=== PATIENT | female | born 1940 | race Caucasian/White ===

== ENCOUNTER 2016-12-28 20:36 | Emergency (ER) | payer MEDICARE, OTHER ==
--- NOTE | 2016-12-28 21:19 | ED Physician Chart ---
Chief Complaint/HPI - Patient Information Date Seen:: 12/28/16 Time Seen:: 21:12 Chief Complaint:: ftt History of Present Illness:: pt sent from [place] for failure to thrive...poor feeding for last week. Dr Alcantar is pmd. pt denies her eating habit is that bad lately. she is alert and oriented and says she feels ok w no abdominal pains. no n/v/d. no fever. no recent illness. pt has 3 dtrs and asked if any could come in or be contacted... pt refuses saying its too late (9pm) Allergies:: Allergies Allergy/AdvReac Type Severity Reaction Status Date / Time MDX No Known Allergies - Nka Allergy Verified 03/01/16 18:59 [No Known Allergies - Nka] Review of Systems - Review of Systems General/Constitutional: Fever, No chills, No weight loss, No weakness, No diaphoresis, No edema, No loss of appetite Skin: No skin lesions, No rash, No bruising Head: No headache, No light-headedness Eyes: No loss of vision, No pain, No diplopia ENT: No earache, No nasal drainage, No sore throat, No tinnitus Neck: No neck pain, No swelling, No thyromegaly, No stiffness, No mass noted Cardio Vascular: No chest pain, No palpitations, No PND, No orthopnea, No edema Pulmonary: No SOB, No cough, No sputum, No wheezing GI: No nausea, No vomiting, No diarrhea, No pain, No melena, No hematochezia, No constipation, No hematemesis G/U: No dysuria, No frequency, No hematuria Musculoskeletal: No bone or joint pain, No back pain, No muscle pain Endocrine: No polyuria, No polydipsia Psychiatric: No prior psych history, No depression, No anxiety, No suicidal ideation Hematopoietic: No bruising, No lymphadenopathy Allergic/Immuno: No urticaria, No angioedema Neurological: No syncope, No focal symptoms, No weakness, No paresthesia, No headache, No seizure, No dizziness, No confusion, No vertigo Family Medical History - Family Member Mother History Unknown: Yes Labs/Radiology/EKG Results - Lab Results Results: Laboratory Tests 12/28/16 12/28/16 12/28/16 21:29 21:29 21:29 WBC 12.0 H D RBC 3.85 Hgb 11.5 L Hct 33.9 L MCV 88.2 MCH 30.0 MCHC Differential 34.0 RDW 13.7 Plt Count 206 MPV 7.7 Neutrophils % 71.7 Lymphocytes % 17.4 L Monocytes % 6.8 Eosinophils % 4.0 Basophils % 0.1 Sodium 137 Potassium 4.1 Chloride 99 Carbon Dioxide 32.9 H Anion Gap 9.2 BUN 32 H Creatinine 0.9 Est GFR ( Amer) TNP Est GFR (Non-Af Amer) TNP BUN/Creatinine Ratio 35.6 Glucose 93 Calcium 9.2 Total Bilirubin 0.4 AST 17 ALT 7 Alkaline Phosphatase 38 Troponin I < 0.01 L Total Protein 6.5 Albumin 3.7 Globulin 2.8 Albumin/Globulin Ratio 1.3 Lipase 68 Urine Source Urine Color Urine Clarity Urine pH Ur Specific [place] Urine Protein Urine Glucose (UA) Urine Ketones Urine Blood Urine Nitrate Urine Bilirubin Urine Urobilinogen Ur Leukocyte Esterase Urine RBC Urine WBC Ur Epithelial Cells Urine Bacteria 12/28/16 21:35 WBC RBC Hgb Hct MCV MCH MCHC Differential RDW Plt Count MPV Neutrophils % Lymphocytes % Monocytes % Eosinophils % Basophils % Sodium Potassium Chloride Carbon Dioxide Anion Gap BUN Creatinine Est GFR ( Amer) Est GFR (Non-Af Amer) BUN/Creatinine Ratio Glucose Calcium Total Bilirubin AST ALT Alkaline Phosphatase Troponin I Total Protein Albumin Globulin Albumin/Globulin Ratio Lipase Urine Source CLEAN C Urine Color YELLOW Urine Clarity CLEAR Urine pH 7.0 Ur Specific [place] 1.015 Urine Protein NEGATIVE Urine Glucose (UA) NEGATIVE Urine Ketones NEGATIVE Urine Blood NEGATIVE Urine Nitrate NEGATIVE Urine Bilirubin NEGATIVE Urine Urobilinogen 0.2 Ur Leukocyte Esterase SMALL H Urine RBC 0-2 Urine WBC 2-5 Ur Epithelial Cells OCCASIONAL Urine Bacteria OCCASIONAL - EKG Interpretations EKG Time:: 21:30 Rhythm: nsr rate 78, qrs axis 61, normal study ED Septic Shock - . Is Septic Shock (SBP<90, OR Lactate>4 mmol\L) present?: No Reassessment (Disposition) - Reassessment Reassessment:: pts studies relatively nrml. case dw Dr Alcantar...says ok to send pt back to facility Reassessment Condition:: Unchanged - Diagnosis Diagnosis:: well check. no acute process. - Aftercare/Follow up Instructions Aftercare/Follow-Up Instructions:: Counseled pt regarding lab results/diagnosis & need follow up - Patient Disposition Discharge/Transfer:: Residential/Boarding Care Condition at Disposition:: Unchanged ED Discharge Plan - Patient Disposition Additional Instructions: follow up with primary doctor within 1-2 days.
[2016-12-28 21:40] LABS: % BASOPHILS 0.1 % (0.0-2.0); % LYMPHOCYTES 17.4 % (20.0-50.0); % MONOCYTES 6.8 % (2.0-10.0); % NEUTROPHILS 71.7 % (40.0-80.0); HEMATOCRIT 33.9 % (35.0-45.0); HEMOGLOBIN 11.5 gm/dL (11.7-16.1); MEAN CELL VOLUME 88.2 fl (81-100); MEAN PLATELET VOLUME 7.7 fl; NEUTROPHILE ABSOLUTE 8.6 Th/cmm (1.8-8.0); PLATELET COUNT 206 Th/cmm (150-400); RED BLOOD COUNT 3.85 Mil/cmm (3.80-5.20); RED CELL DISTRIBUTION WIDTH 13.7 % (11.5-20.0)
[2016-12-28 21:49] LABS: ALB/GLOB RATIO 1.3 (1.0-1.8); ALKALINE PHOSPHATASE 38 U/L (34-104); ANION GAP 9.2 (7.0-16.0); BILIRUBIN,TOTAL 0.4 mg/dL (0.3-1.0); BUN - UREA NITROGEN 32 mg/dL (7-25); BUN/CREATININE RATIO 35.6; CALCIUM SERUM 9.2 mg/dL (8.6-10.3); CARBON DIOXIDE 32.9 mEq/L (21.0-31.0); CHLORIDE 99 mEq/L (98-107); CREATININE - SERUM 0.9 mg/dL (0.6-1.2); GLUCOSE 93 mg/dL (70-105); LIPASE 68 U/L (11-82); POTASSIUM SERUM 4.1 mEq/L (3.5-5.1); SGOT 17 U/L (13-39); SGPT/ALT 7 U/L (7-52); SODIUM SERUM 137 mEq/L (136-145)
[2016-12-28 22:31] LABS: URINE COLOR YELLOW
[2016-12-28 22:32] LABS: URINE BILIRUBIN NEGATIVE (NEGATIVE); URINE BLOOD NEGATIVE (NEGATIVE); URINE GLUCOSE (UA) NEGATIVE (NEGATIVE); URINE KETONE NEGATIVE (NEGATIVE); URINE PROTEIN NEGATIVE (NEGATIVE); URINE RBC 0-2 /hpf (0-5); URINE UROBILINOGEN 0.2 E.U./dL (0.2 - 1.0)
[2016-12-28 22:33] LABS: URINE BACTERIA OCCASIONAL /hpf (NONE SEEN); URINE EPITHELIAL CELLS OCCASIONAL /lpf (FEW)
== END 2016-12-28 23:55 | disposition home or self-care (01) ==
LOC: ER 20:36
DX: R62.7 Adult failure to thrive (principal); Z02.89 Encounter for other administrative examinations
CPT/HCPCS: 36415-UA; 80053-TC; 81001-TC; 83690-TC; 84484-TC; 85025-TC; 93005

== ENCOUNTER 2017-01-04 16:01 | Inpatient (IN) | payer MEDICARE, OTHER ==
--- NOTE | 2017-01-04 16:28 | ED Physician Chart ---
Chief Complaint/HPI - Patient Information Date Seen:: 01/04/17 Time Seen:: 16:23 Chief Complaint:: psych eval History of Present Illness:: pt sent from [facility] [place] for geripsych eval. pt has had increased confusion lately and general weakness.. pt denies any recent illness, pain or recent trouble. pmd dr cisneros, psy dr fermin on o2 4l for copd no recent fever, no gi sx,, pt noted on my exam to have a slt cough....have not seen her produce any sputum. asked pt if this is her chronic copd cough and she doesnt know...also was unaware of copd hx...seems dementia... poor historian Allergies:: Allergies Allergy/AdvReac Type Severity Reaction Status Date / Time No Known Allergies Allergy Verified 01/04/17 16:11 Vitals:: Vital Signs - 8 hr 01/04/17 16:01 Temp 98.2 F HR 97 RR 16 BP 137/80 O2 Sat % 97 Historian:: Patient, EMS Review:: Transfer documents Reviewed Review of Systems - Review of Systems General/Constitutional: No fever, No chills, No weight loss, No weakness, No diaphoresis, No edema, No loss of appetite Skin: No skin lesions, No rash, No bruising Head: No headache, No light-headedness Eyes: No loss of vision, No pain, No diplopia ENT: No earache, No nasal drainage, No sore throat, No tinnitus Neck: No neck pain, No swelling, No thyromegaly, No stiffness, No mass noted Cardio Vascular: No chest pain, No palpitations, No PND, No orthopnea, No edema Pulmonary: No SOB, No cough, No sputum, No wheezing GI: No nausea, No vomiting, No diarrhea, No pain, No melena, No hematochezia, No constipation, No hematemesis G/U: No dysuria, No frequency, No hematuria Musculoskeletal: No bone or joint pain, No back pain, No muscle pain Endocrine: No polyuria, No polydipsia Psychiatric: No prior psych history, No depression, No anxiety, No suicidal ideation Hematopoietic: No bruising, No lymphadenopathy Allergic/Immuno: No urticaria, No angioedema Neurological: No syncope, No focal symptoms, Weakness (generalized weakness...no focal neuro change), No weakness, No paresthesia, No headache, No seizure, No dizziness, Confusion (?), No confusion, No vertigo Past Medical History - Past Medical History Past Medical History: Asthma/COPD, Dyslipidemia, Dementia, Other (anemia) Social History: Non Smoker, No Alcohol, No Drug Use, Care Facility Psychiatricy History: Depression, Dementia, Other (anxiety) Medication: Reviewed Family Medical History - Family Member Mother History Unknown: Yes Physical Exam - Physical Examination General/Constitutional: Awake, Well-developed, well-nourished, Alert, No distress, GCS 15, Non-toxic appearing, Ambulatory Other Gen/Cons comments:: alert and in nad. wn/wh. Head: Atraumatic Eyes: Lids, conjuctiva normal, PERRL, EOMI Skin: Nl inspection, No rash, No skin lesions, No ecchymosis, Well hydrated, No lymphadenopathy ENMT: External ears, nose nl, Nasal exam nl, Lips, teeth, gums nl Neck: Nontender, Full ROM w/o pain, No JVD, No nuchal rigidity, No bruit, No mass, No stridor Respiratory: Nl effort/Exclusion, Clear to Auscultation, No Wheeze/Rhonchi/Rales Other Respiratory comments:: mild nps cough. nonlabored breathing Cardio Vascular: RRR, No murmur, gallop, rubs, NL S1 S2 GI: No tenderness/rebounding/guarding, No organomegaly, No hernia, Normal BS's, Nondistended, No mass/bruits, No McBurney tenderness : No CVA tenderness Extremities: No tenderness or effusion, Full ROM, normal strength in all extremities, No edema, Normal digits & nails Neuro/Psych: Alert/oriented, DTR's symmetric, Normal sensory exam, Normal motor strength, Judgement/insight normal, Mood normal, Normal gait, No focal deficits Other Neuro/Psych comments:: poor historian..dementia hx alert and calm and talkative but w poor memory Misc: normal gait, Normal back, No paraspinal tenderness Labs/Radiology/EKG Results - Lab Results Results: Laboratory Tests 01/04/17 01/04/17 01/04/17 16:34 16:34 16:34 WBC 12.1 H RBC 4.16 Hgb 12.1 Hct 37.1 MCV 89.2 MCH 29.1 MCHC Differential 32.6 RDW 13.5 Plt Count 307 D MPV 7.6 Neutrophils % 78.6 Lymphocytes % 8.1 L Monocytes % 10.7 H Eosinophils % 2.1 Basophils % 0.5 Sodium 134 L Potassium 4.1 Chloride 98 Carbon Dioxide 38.9 H Anion Gap 1.2 L BUN 25 Creatinine 0.8 Est GFR ( Amer) TNP Est GFR (Non-Af Amer) TNP BUN/Creatinine Ratio 31.3 Glucose 109 H Calcium 10.6 H Troponin I < 0.01 L Triglycerides 110 Cholesterol 197 LDL Cholesterol Direct 145 HDL Cholesterol 47 - Radiology Results Results: cxr- chronic changes but no acute inf/effn. - EKG Interpretations EKG Time:: 16:25 Rhythm: nsr 94 [place]: 61 Rate: 94 Comments:: LAD, ?q's in v1/2..nrml st/t segs ED Septic Shock - . Is Septic Shock (SBP<90, OR Lactate>4 mmol\L) present?: No - <6hrs of presentation: Vital Signs: Vital Signs - 8 hr 01/04/17 16:01 Temp 98.2 F HR 97 RR 16 BP 137/80 O2 Sat % 97 Reassessment (Disposition) - Reassessment Reassessment Condition:: Unchanged - Diagnosis Diagnosis:: 1 difficult behavior /failure to thrive 2 medically clear for geripsych admission - Patient Disposition Admitted to:: [facility] Condition at Disposition:: Unchanged ED Discharge Plan - Patient Disposition Instructions: Psychosis
[2017-01-04 16:41] LABS: % BASOPHILS 0.5 % (0.0-2.0); % EOSINOPHILS 2.1 % (0.0-5.0); % LYMPHOCYTES 8.1 % (20.0-50.0); % MONOCYTES 10.7 % (2.0-10.0); % NEUTROPHILS 78.6 % (40.0-80.0); HEMATOCRIT 37.1 % (35.0-45.0); HEMOGLOBIN 12.1 gm/dL (11.7-16.1); MEAN CELL VOLUME 89.2 fl (81-100); MEAN CORPUSCULAR HEMOGLOBIN 29.1 pg (27.0-31.0); MEAN CORPUSCULAR HGB CONC 32.6 pg (28.0-36.0); MEAN PLATELET VOLUME 7.6 fl; NEUTROPHILE ABSOLUTE 9.4 Th/cmm (1.8-8.0); RED BLOOD COUNT 4.16 Mil/cmm (3.80-5.20); RED CELL DISTRIBUTION WIDTH 13.5 % (11.5-20.0); WHITE BLOOD COUNT 12.1 Th/cmm (4.8-10.8)
[2017-01-04 16:44] LABS: PLATELET COUNT 307 Th/cmm (150-400)
[2017-01-04 16:56] LABS: ANION GAP 1.2 (7.0-16.0); BUN - UREA NITROGEN 25 mg/dL (7-25); BUN/CREATININE RATIO 31.3; CALCIUM SERUM 10.6 mg/dL (8.6-10.3); CARBON DIOXIDE 38.9 mEq/L (21.0-31.0); CHLORIDE 98 mEq/L (98-107); CHOLESTEROL 197 mg/dL (<200); CREATININE - SERUM 0.8 mg/dL (0.6-1.2); GLUCOSE 109 mg/dL (70-105); POTASSIUM SERUM 4.1 mEq/L (3.5-5.1); SODIUM SERUM 134 mEq/L (136-145); TRIGLYCERIDES 110 mg/dL (<150)
[2017-01-04 18:01] LABS: URINE BILIRUBIN NEGATIVE (NEGATIVE); URINE BLOOD NEGATIVE (NEGATIVE); URINE COLOR YELLOW; URINE GLUCOSE (UA) NEGATIVE (NEGATIVE); URINE KETONE NEGATIVE (NEGATIVE); URINE PH 5.5; URINE PROTEIN NEGATIVE (NEGATIVE); URINE UROBILINOGEN 0.2 E.U./dL (0.2 - 1.0)
[2017-01-04 18:02] LABS: URINE BACTERIA NONE SEEN /hpf (NONE SEEN); URINE EPITHELIAL CELLS NONE SEEN /lpf (FEW); URINE RBC NONE SEEN /hpf (0-5); URINE WBC NONE SEEN /hpf (0-5)
[2017-01-04 18:34] VITALS: BP 108/77
--- NOTE | 2017-01-04 19:02 | Admit Criteria Form ---
Admit Criteria Forms - Admit Criteria Diagnosis: PSYCHIATRIC DISORDERS Clinical Indications for Inpatient Care (Place 'X' for any and all applicable criteria): Ongoing inpatient care may be needed for ANY ONE of the following(1)(2)(3)(4)(6) (7)(8): [ ]I. Danger to self or others not manageable at lower level of care. [ ]II. Grave disability (eg, inability to perform self care necessary at lower level of care) [ ]III. Agitation or inappropriate behavior interfering with care for primary condition (eg, attempting to discontinue lines or drains prematurely, unable to cooperate with respiratory care) [X]IV. Severe disability or disorder indicated by ALL of the following: [X]a) Severe behavioral health disorder-related symptoms or condition indicated by ANY ONE of the following: [ ]i) Severe problem with cognition, memory, judgment, or impulse control [X]ii) Severe clinical manifestations (eg, hallucinations, delusions, other acute psychotic symptoms, jessica, extreme agitation or anxiety) [X]b) Patient management at lower level of care is not feasible until acute intervention or modification is initiated. Extended stay beyond goal length of stay for the primary condition may be indicated when ANY ONE of the following is present: (1)(2)(3)(4): [ ]a) Patient is a danger to self or others and not manageable at lower level of care. [ ]b) Behavior crisis management, including physical or chemical restraints, is required and is not available at a lower level of care. [ ]c) Behavioral symptoms (e.g., agitation, somnolence, inappropriate behavior) are present, and are not manageable at a lower level of care. [ ]d) Patient cannot understand follow-up treatment and crisis plan. [ ]e) Provider and supports are not sufficiently available at lower level of care. [ ]f) Patient cannot participate (e.g., verify absence of plan for harm) and is in needed of monitoring. The original [facility] content created by [facility] has been revised. The portions of the content which have been revised are identified through the use of italic text or in bold, and [facility] has neither reviewed nor approved the modified material. All other unmodified content is copyright [facility]. Please see references footnoted in the original [facility] edition 2016 Admit Criteria Met?: Yes
[2017-01-04] MEDS ORDERED: Non-Formulary Item 1 EA (Temazepam [Restoril*] 7.5 MG) PO PRN (19:33)
[2017-01-04] MEDS ORDERED: LEVALBUTEROL HCL HHN PRN (19:33)
[2017-01-04] MEDS ORDERED: Maalox 30 mL Cup PO PRN (19:33)
[2017-01-04] MEDS ORDERED: Ipratropium Neb 0.5 mg/2.5 mL UD HHN PRN (19:33)
[2017-01-04] MEDS ORDERED: Magnesium Hydroxide (MOM) 30 mL UDC PO PRN (22:22)
[2017-01-05] MEDS: Calcium Carb/Vit D 500 mg/200 U Tab PO SCH ×2 (08:30→16:54)
[2017-01-05] MEDS: Potassium Chloride 10 mEq ER Tab PO SCH (08:33)
[2017-01-05] MEDS: Multivitamin Tab PO SCH (08:33)
[2017-01-05] MEDS ORDERED: Non-Formulary Item 1 EA (Multivitamin-Min/Iron/Fa/Vit K [Multi-Day Plus Minerals Tablet] 1 PO SCH (09:00)
[2017-01-05] MEDS ORDERED: METHYLCOBALAMIN PO SCH (09:00)
[2017-01-05 10:25] LABS: HEP B CORE IGM Negative (Negative); HEP C ANTIBODY 0.1 s/co ratio (0.0-0.9)
--- NOTE | 2017-01-05 10:37 | Diagnostic Imaging Report ---
Portable chest x-ray HISTORY: Shortness of breath, COPD The lungs are hyperexpanded consistent with changes of COPD. Accentuation of the interstitial lung markings particularly in the right lower lobe. The overall appearance suggests a chronic etiology. No other focal processes. The overall heart size is normal. Atherosclerotic calcification seen in the aorta. No hilar or mediastinal abnormalities. IMPRESSION: 1. Findings consistent with COPD. Accentuation of the lower interstitial lung markings particularly in the right lower lobe. The appearance appears chronic. 2. Atherosclerotic vascular changes
--- NOTE | 2017-01-06 00:16 | Consultation ---
HISTORY OF PRESENT ILLNESS: The patient is a 76-year-old female was seen at [facility]. MEDICAL PROBLEMS: Include chronic respiratory failure with advanced COPD; the patient is on oxygen, coronary artery disease, chronic ischemic heart disease, hypertension, peptic ulcer disease, gastritis, arthritis, osteoporosis, anemia and hyperlipidemia. SOCIAL HISTORY: Prior history of smoking, no history of drug or alcohol abuse. FAMILY HISTORY: Not available. OBSTETRIC HISTORY: P2+0. Menses, postmenopausal. REVIEW OF SYSTEMS: The patient has chronic shortness of breath, no vomiting, no diarrhea, no melena or hematochezia. The patient not complaining of any chest pain. The patient had extensive arthritic pain. PHYSICAL EXAMINATION: GENERAL: A thin, cachectic female in class 2 to class 3 dyspnea. VITAL SIGNS: Include a blood pressure 140/80, heart rate 88 and respiration rate of 18. SKIN: Show no obvious cellulitis. HEENT: Normal conjunctivae. NECK: Supple. LUNGS: Showed bilateral rhonchi as well as crepitation, poor respiratory movement. HEART: First ____. ABDOMEN: Soft, minimal epigastric tenderness. Bowel sounds good. EXTREMITIES: Show arthritis. NEUROLOGIC: The patient has no focal motor deficit. LABORATORY DATA: Include white count 12.1, hemoglobin 12.1, hematocrit 37.1 and platelet count of 307. Sodium 134, potassium 4.1, chloride 98, bicarbonate 38.9, BUN 25, creatinine 0.8 and glucose of 109. Troponins are negative. Urine is negative. In view of exam, the patient's medical diagnoses include chronic respiratory failure, COPD, coronary artery disease, hypertension, chronic ischemic heart disease, peptic ulcer disease, gastritis, arthritis, osteoporosis, anemia and hyperlipidemia. CURRENT MEDICINES: Includes Maalox, Os-Rafa, bronchodilator treatment with DuoNeb, milk of magnesia. The patient is on Zocor and potassium chloride. Rest of medicines as per psychiatrist. Thank you Dr. Ruth for letting me see your patient. JOB# [id number]
--- NOTE | 2017-01-06 04:25 | Psychosocial Evaluation ---
IDENTIFYING DATA: The patient is a 76-year-old woman admitted here on a voluntary basis from [facility] because of her acute agitation and refusing ADLs. Chart is reviewed. The patient is interviewed. Staff was spoken to. CHIEF COMPLAINT: "I do not know why they have to bring me in here." HISTORY OF PRESENT ILLNESS: This is the second psychiatric hospitalization to [facility] for this patient, who was hospitalized under my care in February 2016. The patient has been diagnosed to have psychotic disorder at that time and has been stabilized and was discharged to be followed up on an outpatient basis. The patient during the evaluation has been getting easily upset and agitated and stating that she is tired and cannot go on answering all the questions. The patient's sleep and appetite prior to the hospitalization are reported to be poor. Prior to the hospitalization, the patient is reported to have been on Tylenol and Ativan on an as-needed basis and the patient is also on simvastatin for her cholesterol problems and temazepam 7.5 mg at bedtime. Even with these medications, the patient has been having difficult time to fall asleep and the patient has been reported to be getting easily agitated, screaming and yelling at the staff and the patient has to be transferred over here for stabilization. The chart review indicated that the patient was on 12.5 mg of the Seroquel for the agitated behavior. MEDICAL HISTORY AND PHYSICAL EXAMINATION: Requested to be done by Dr. Cabello. SUBSTANCE ABUSE HISTORY: None. PHYSICAL OR SEXUAL ABUSE HISTORY: None. STRENGTH AND ASSETS: The patient is motivated. MENTAL STATUS EXAMINATION: The patient is a 76-year-old woman, thin built, superficially cooperative. Eye contact is poor. Mood is noted to be irritable. Affect is constricted. Insight and judgment at this time are noted to be impaired. Impulse control seems to be poor. Coping skills are also noted to be poor. The patient has been having difficult time to cope with the stress. The patient has been getting easily frustrated when I am trying to talk to her. DIAGNOSES: At the time of the evaluation: AXIS I: A. Psychotic disorder, not otherwise specified. B. Dementia and behavioral change, secondary trait. AXIS II: None. AXIS III: As per Dr. Cabello. IMMEDIATE TREATMENT PLAN: The patient is going to be closely monitored on the unit, provided with supportive psychotherapy. The patient is going to be restarted on the Seroquel. ESTIMATED LENGTH OF STAY: 3-5 days. DISCHARGE CRITERIA: When she no longer a threat to self or others and be able to cope up with the stress. JOB# [id number]
[2017-01-06] MEDS: Multivitamin Tab PO SCH (09:27)
[2017-01-06] MEDS: Calcium Carb/Vit D 500 mg/200 U Tab PO SCH ×2 (09:27→17:44)
[2017-01-06] MEDS: Potassium Chloride 10 mEq ER Tab PO SCH (09:28)
[2017-01-06] MEDS ORDERED: Albuterol Nebulizer 2.5mg/3mL HHN PRN (17:12)
--- NOTE | 2017-01-06 21:11 | Progress Notes ---
PSYCHIATRIC PROGRESS NOTE TIME PATIENT SEEN: 9:30 a.m. Staff was spoken to. The patient is interviewed. Mood is noted to be less irritable. Affect is appropriate. The patient is stating that she is feeling depressed today. The patient has been on just Ambien and Ativan as needed. The patient's coping skills at this time are noted to be poor. Sleep and appetite are also noted to be poor. No side effects to the medications are noted. The patient has been having difficult time to cope with the stress. In view of the depression, it is decided to start the patient on low dose of the Lexapro and encouraged the patient to verbalize the concerns rather than to act out. The patient is going to be started on Lexapro 5 mg in the morning and followed up with the supportive therapy. [facility]# [id number]
[2017-01-07] MEDS: Escitalopram Oxalate 5 mg Tab PO SCH (08:30)
[2017-01-07] MEDS: Potassium Chloride 10 mEq ER Tab PO SCH (08:31)
[2017-01-07] MEDS: Multivitamin Tab PO SCH (08:31)
[2017-01-07] MEDS: Calcium Carb/Vit D 500 mg/200 U Tab PO SCH ×2 (08:31→16:35)
--- NOTE | 2017-01-07 19:20 | Progress Notes ---
PSYCHIATRIC PROGRESS NOTE TIME PATIENT SEEN: 11:00 a.m. SUBJECTIVE: Staff was spoken to. The patient is interviewed. Mood is noted to be anxious. Coping skills are noted to be still poor. The patient is isolative and withdrawn. The patient has been getting easily upset today. No side effects to the medications are noted. The patient, however, has been able to verbalize the concerns rather than to act out. Mood is noted to be still depressed. The patient feels frustrated. No side effects to the medications are noted. The patient is currently on Lexapro 5 mg and is able to tolerate the medication. PLAN: To continue the patient with the supportive therapy. I encouraged the patient to verbalize the concerns rather than to act out. JOB# [id number]
[2017-01-08] MEDS: Calcium Carb/Vit D 500 mg/200 U Tab PO SCH ×2 (09:47→18:23)
[2017-01-08] MEDS: Multivitamin Tab PO SCH (09:47)
[2017-01-08] MEDS: Escitalopram Oxalate 5 mg Tab PO SCH (09:47)
[2017-01-08] MEDS: Potassium Chloride 10 mEq ER Tab PO SCH (09:49)
--- NOTE | 2017-01-08 22:24 | Progress Notes ---
TIME PATIENT SEEN: 12:45 p.m. SUBJECTIVE: Staff was spoken to. The patient is interviewed. Mood is noted to be anxious. The patient's insight and judgment noted to be improving. Impulse control seems to be fair. The patient's mood is noted to be still depressed. Affect is constricted. The patient is isolative and withdrawn. No major side effects to the Lexapro are noted at this time. ASSESSMENT: The patient is still depressed. PLAN: To continue the patient with the supportive therapy and continue the Lexapro and follow up. JOB# [id number]
[2017-01-09] MEDS: Calcium Carb/Vit D 500 mg/200 U Tab PO SCH ×2 (08:51→16:24)
[2017-01-09] MEDS: Potassium Chloride 10 mEq ER Tab PO SCH (08:51)
[2017-01-09] MEDS: Escitalopram Oxalate 5 mg Tab PO SCH (08:51)
[2017-01-09] MEDS: Multivitamin Tab PO SCH (08:51)
[2017-01-10] MEDS: Calcium Carb/Vit D 500 mg/200 U Tab PO SCH ×2 (08:49→17:19)
[2017-01-10] MEDS: Potassium Chloride 10 mEq ER Tab PO SCH (08:49)
[2017-01-10] MEDS: Multivitamin Tab PO SCH (08:49)
[2017-01-10] MEDS: Escitalopram Oxalate 5 mg Tab PO SCH (08:49)
--- NOTE | 2017-01-10 23:11 | Progress Notes ---
PSYCHIATRIC PROGRESS NOTE TIME PATIENT SEEN: 7:30 a.m. SUBJECTIVE: Staff was spoken to. The patient is interviewed. Mood is noted to be depressed. Affect is constricted. The patient is isolative and withdrawn. Coping skills are noted to be very poor. The patient has been having anxiety and is stating that she has been having problems with the breathing. No side effects to the medications are noted. ASSESSMENT: The patient is still depressed. PLAN: To continue the patient with the current medications. I encouraged the patient to verbalize the concerns rather than to act out. JOB# [id number]
[2017-01-11] MEDS: Multivitamin Tab PO SCH (08:15)
[2017-01-11] MEDS: Escitalopram Oxalate 5 mg Tab PO SCH (08:15)
[2017-01-11] MEDS: Calcium Carb/Vit D 500 mg/200 U Tab PO SCH ×2 (08:20→17:40)
[2017-01-11] MEDS: Potassium Chloride 10 mEq ER Tab PO SCH (08:20)
--- NOTE | 2017-01-11 22:23 | Progress Notes ---
PSYCHIATRIC PROGRESS NOTE TIME PATIENT SEEN: 7:30 a.m. SUBJECTIVE: Staff was spoken to. The patient is interviewed. Mood is noted to be less irritable. Affect is appropriate. Not suicidal or homicidal today. Insight and judgment are noted to be improving. Impulse control seems to be improving a little bit. The patient has been appreciative of the care that is provided with the staff in here. Sleep and appetite are also noted to be improving. No major problems to the medications are noted. ASSESSMENT: The patient is stabilizing. PLAN: To continue the patient with the current medications and possibly discharge the patient tomorrow to the facility for followup. JOB# [id number]
[2017-01-12] MEDS: Calcium Carb/Vit D 500 mg/200 U Tab PO SCH ×2 (09:29→18:04)
[2017-01-12] MEDS: Potassium Chloride 10 mEq ER Tab PO SCH (09:29)
[2017-01-12] MEDS: Multivitamin Tab PO SCH (09:30)
[2017-01-12] MEDS: Escitalopram Oxalate 5 mg Tab PO SCH (09:31)
--- NOTE | 2017-01-13 00:43 | Progress Notes ---
PSYCHIATRIC PROGRESS NOTE TIME PATIENT SEEN: 8:30 a.m. SUBJECTIVE: Staff was spoken to. The patient is interviewed. Mood is noted to be less irritable. Affect is appropriate. The patient has been stating that she has been able to sleep a little bit. Coping skills are noted to be improving. No side effects to the medications are noted. The patient is currently on Lexapro and has been able to tolerate the medication. ASSESSMENT: The patient is less depressed. PLAN: To continue the patient with the supportive therapy. I encouraged the patient to verbalize the concerns and coordinate the care with the residential case manager with regard possibly discharging the patient back to . JOB# [id number]
--- NOTE | 2017-02-17 04:21 | Discharge Summary ---
IDENTIFYING DATA: The patient is a 76-year-old woman admitted here on a voluntary basis from [facility]. JUSTIFICATION OF HOSPITALIZATION: The patient is admitted here because of acute agitation and refusing ADLs. CHIEF COMPLAINT: "I do not know why they have to bring me in here." DIAGNOSIS AT THE TIME OF ADMISSION: AXIS I: 1a. Psychotic disorder, unspecified. 1b. Dementia and behavioral changes, secondary to it. AXIS II: None. AXIS III: As per Dr. Cabello. HISTORY OF PRESENT ILLNESS: Please refer to the 01/05/2017, dictation done by me. Physical examination at the time of admission was done by Dr. Cabello and is noted to be significant for COPD, coronary artery disease, hypertension, peptic ulcer disease, gastritis, arthritis, osteoporosis and hyperlipidemia. HOSPITAL COURSE AND RESPONSE TO TREATMENT: The patient has been observed on the inpatient unit, provided with supportive psychotherapy. The patient has been closely monitored. The patient has been given the citalopram 5 mg for her depression and the patient has been closely monitored for any chest pain and has been able to participate in the groups and verbalize the concerns. The patient also has been given the zolpidem 5 mg at bedtime. With these medications, the patient was observed and the patient started to do fairly well and hence [facility] Dr. prater MENTAL STATUS EXAMINATION: At the time of discharge, the patient's mood is noted to be anxious. Affect is appropriate. Not suicidal or homicidal. Insight and judgment noted to be fair. Impulse control is noted to be improving. No side effects to the medications are noted at the time of discharge. The patient has been able to verbalize the concerns rather than to act out. DIAGNOSES AT THE TIME OF DISCHARGE: AXIS I: 1a. Depressive disorder, not otherwise specified. 1b. Dementia and behavioral changes, secondary trait. AXIS II: None. AXIS III: Hypertension, COPD, hyperlipidemia, coronary artery disease, hepatitis and gastritis. AFTERCARE PLAN: The patient is discharged to [facility] for further followup. PROGNOSIS: At the time of discharge noted to be fair with the treatment. JOB# [id number] [facility]
== END 2017-01-12 18:15 | DRG 884 ==
LOC: ER 16:01 → GERO 17:35
PROVIDERS: ADMIT Psychiatry & Neurology Psychiatry; ATTEND Psychiatry & Neurology Psychiatry
DX: F03.91 Unspecified dementia, unspecified severity, with behavioral disturbance (principal); J96.10 Chronic respiratory failure, unspecified whether with hypoxia or hypercapnia; J44.9 Chronic obstructive pulmonary disease, unspecified; I25.9 Chronic ischemic heart disease, unspecified; I25.10 Atherosclerotic heart disease of native coronary artery without angina pectoris; F29 Unspecified psychosis not due to a substance or known physiological condition; E78.5 Hyperlipidemia, unspecified; F32.9 Major depressive disorder, single episode, unspecified; F41.9 Anxiety disorder, unspecified; R62.7 Adult failure to thrive; I10 Essential (primary) hypertension; K27.9 Peptic ulcer, site unspecified, unspecified as acute or chronic, without hemorrhage or perforation; M19.90 Unspecified osteoarthritis, unspecified site; M81.0 Age-related osteoporosis without current pathological fracture; D64.9 Anemia, unspecified; K29.70 Gastritis, unspecified, without bleeding
CPT/HCPCS: 36415-UA; 71010-TC; 80048-TC; 80061-TC; 80074-90; 81001-TC; 84443-TC; 84484-TC; 85025-TC; 86592-TC; 90779; 90899; 93005; 94640; 94760; G0410; J7613; Z7610